=== PATIENT | male | born 1985 | race Caucasian/White ===

== ENCOUNTER → 2017-06-24 07:18 | Outpatient (CLI) | payer BC, SELFPAY ==
[2017-06-24 10:23] LABS: Cholesterol 169 mg/dL (200); Glucose 89 mg/dL (70-110); High Density Lipoprotein 35 mg/dL; Triglycerides 122 mg/dL; Very Low Density Lipoprotein 24 mg/dL (5-40)
== END ==
PROVIDERS: Family Provider Family Medicine; PCP Family Medicine; Visit Provider Family Medicine
DX: Z13.220 Encounter for screening for lipoid disorders (principal); Z13.1 Encounter for screening for diabetes mellitus
CPT/HCPCS: 36415; 80061; 82947

== ENCOUNTER 2017-08-08 17:30 | Outpatient (RCR) | payer BC, SELFPAY ==
--- NOTE | 2017-04-28 15:19 | HP.PTEVAL_ITS ---
Patient's Visit Information ADDIE CALDERÓN is a 32 year old M referred to Physical Therapy by Mich Shetty MD with a diagnosis of BANKHART REPAIR LEFT SHOULDER. Date of Evaluation: 04/28/17 Physical Therapist: Jaxon Welch PT, - Visit Plan Frequency: 3x /Week Duration: 8WEEKS Plan: BANKHART GUIDELINES. SEE PROTOCAL. PHASE 1 X6 WEEKS *NO ER AND ABDUCTION*. PHASE 2 [id number]. PHASE 3 [id number]. OKAY TO REMOVE SLING AT HOME - Subjective Subjective: This 32 male presents to physical therapy with Bankart repair left shoulder on Apr 15 done [facility]. Patient had nerve block d/c same day with sling.Sling on PRN for comfort okay to remove at home. Ice at home. Patient limited with all ADL'S and function activites left UE.Denies parathesia/ tingling. Sleeping okay. Seen Tuesday removed stitches. 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 SOCIAL: . HOBBIES : 4 wheeling. RTD 6weeks.Patient RTW office work. - Pain Left Shoulder Pain Intensity (Out of 10): 2 - Objective POSTURE: rounded shoulders sling inact. INSCION: well approximate. SLING INTACT. NEURO: incat ,denies parathesia/tingling. MMT: NT shoulder, elbow/ wrist 4/5. PROM : shoulder flexion 85 degrees supine ,NT abduction/ER. PALAPTION: unremarkable. EDEMA: mild shoulder - Goals Goal 1:: Independant with HEP progression with Banhart PROTOCAL Goal Time Frame: 4-6 Weeks Goal 2:: No pain with left shoulder 90% Goal Time Frame: 12-16 Weeks Goal 3:: Patient improve AROM shoulder flexion/abd 150 degrees and ER 80 degrees to improve function. Goal Time Frame: 8-12 Weeks Goal 4:: Patient increase strength left shoulder RTC 4/5 AND DELTOID 4-/5 to improve function with ADL'S Goal Time Frame: 12-16 Weeks Goal 5:: Patient to improve ablity to use arm for ADL'S ,self hygine and job demands with min limiations Goal Time Frame: 12-16 Weeks - Rehabilitation Potential Physical Therapy Diagnosis: This patient underwent s/p left shoulder bankhart repair 04/15/17 . Patient has loss ROM,strength left shoulder impairs function amd self hygine with restrisction. PHASE 1 X6 WEEKS ,THEN PHASE 2 6WEEKS AND PHASE 3 6WEEKS WITH. *NO ABDUCTION AND ER.*-FOR 6WEEKS Rehabilitation Potential: Good - Anticipated Interventions Patient/Client Instruction: Educate patient on: Condition, Plan of Care For the Purpose of:: To decrease pain, To increase ROM, To improve muscle performance and motor function, To improve ability to perform ADL's, To increase tolerance to activity/condition/position, To improve performance and independence with ADL's, To improve ability of physical actions for home/ community/work/leisure, To improve health of tissue, To decrease soft tissue restriction, To increase flexibility/ROM, To prevent re-injury Therapeutic Exercise to Include: Strength training, Passive ROM, Active ROM, Scapular Strength/Stabilization Comment: KULWANT GUIDELINES --SEE PROTOCAL. PHASE 1 X6 WEEKS NO ABD/ER FOR 6WEEKS. PHASE 2 X6 WEEKS. PHASE 3 X6 WEEKS For the Purpose of:: To decrease pain, To increase ROM, To improve muscle performance and motor function, To improve ability to perform ADL's, To increase tolerance to activity/condition/position, To improve performance and independence with ADL's, To improve ability of physical actions for home/ community/work/leisure, To improve health of tissue, To decrease soft tissue restriction, To increase flexibility/ROM IF ES: Yes Cryotherapy (ice pack, ice massage): Yes Thermo therapy (hot pack): Yes For the Purpose of:: To decrease pain, To decrease swelling/inflammation, To improve nutrient delivery to tissue, To increase oxygenation perfusion, To improve health of tissue, To decrease soft tissue restriction Thank you for the opportunity to evaluate your patient. For Medicare and Medicare HMO plans, please review the plan of care and approve it. It will need to be FAXED BACK to us at [phone] for Medicare purposes. Please let me know if there are questions or concerns regarding this plan of care. Physician Signature: Date:
--- NOTE | 2017-05-27 11:47 | HP.PTREVAL_ITS ---
Mich Shetty MD, It has been my pleasure to treat ADDIE CALDERÓN over the last 7 visits for BANKHART REPAIR LEFT SHOULDER. Please see the progress note below for an update on the physical therapy plan of care! Subjective: s/p 6weeks 05/27. sores shoulder ,but patient limitations with ER AND ABD. PAIN TODAY 07/09 Objective/Function: AAROM 130 DEGREES FLEXION. RTC 3+/5,,ELBOW /WRIST 4-/5, NT DELTOID. ER /ABD NT ARROM PROGRRESS ON 05/27/17. AROM NT Plan Plan: REQUESTING 18 VISITS DUE TO REQUIRING SKILLED PT WITH PROGRESSION OF PROTOCAL OF S/P BANHART REPAIR , ROM WITH FLEXION ONLY PER RESTRICTIONS , STRENGTH IMPAIRS FUNCTION. . BANKHART GUIDELINES. SEE PROTOCAL. S/P APR 15, 2017 6WEEKS MAY 27. PHASE 1 X6 WEEKS *NO ER AND ABDUCTION* START. PHASE 2 [id number]. PHASE 3 [id number]. OKAY TO REMOVE SLING AT HOME Goals Goal 1:: Independant with HEP progression with Banhart PROTOCAL Goal Time Frame: 4-6 Weeks Goal 2:: No pain with left shoulder 90% Goal Time Frame: 12-16 Weeks Goal 3:: Patient improve AROM shoulder flexion/abd 150 degrees and ER 80 degrees to improve function. Goal Time Frame: 8-12 Weeks Goal 4:: Patient increase strength left shoulder RTC 4/5 AND DELTOID 4-/5 to improve function with ADL'S Goal Time Frame: 12-16 Weeks Goal 5:: Patient to improve ablity to use arm for ADL'S ,self hygine and job demands with min limiations Goal Time Frame: 12-16 Weeks Anticipated Interventions Patient/Client Instruction: Educate patient on: Condition, Plan of Care For the Purpose of:: To decrease pain, To increase ROM, To improve muscle performance and motor function, To improve ability to perform ADL's, To increase tolerance to activity/condition/position, To improve performance and independence with ADL's, To improve ability of physical actions for home/ community/work/leisure, To improve health of tissue, To decrease soft tissue restriction, To increase flexibility/ROM, To prevent re-injury Therapeutic Exercise to Include: Strength training, Passive ROM, Active ROM, Scapular Strength/Stabilization Comment: BANKHART GUIDELINES --SEE PROTOCAL. PHASE 1 X6 WEEKS NO ABD/ER FOR 6WEEKS. PHASE 2 X6 WEEKS. PHASE 3 X6 WEEKS For the Purpose of:: To decrease pain, To increase ROM, To improve muscle performance and motor function, To improve ability to perform ADL's, To increase tolerance to activity/condition/position, To improve performance and independence with ADL's, To improve ability of physical actions for home/ community/work/leisure, To improve health of tissue, To decrease soft tissue restriction, To increase flexibility/ROM IF ES: Yes Cryotherapy (ice pack, ice massage): Yes Thermo therapy (hot pack): Yes For the Purpose of:: To decrease pain, To decrease swelling/inflammation, To improve nutrient delivery to tissue, To increase oxygenation perfusion, To improve health of tissue, To decrease soft tissue restriction Please do not hesitate to contact me at [phone] by phone or Fax: if you have questions or concerns regarding this new plan of care! Sincerely, Jaxon Welch PT,
--- NOTE | 2017-06-28 08:13 | HP.PTREVAL ---
Mich Shetty MD, It has been my pleasure to treat ADDIE CALDERÓN over the last 13 visits for BANKHART REPAIR LEFT SHOULDER. Please see the progress note below for an update on the physical therapy plan of care! Subjective: Patient reports feeling better Objective/Function: POSTURE: mild foward posture. PROM: shoulder flexion 150 degrees,abd [address],ER 5IDE 50 DEGREES. AROM: shoulder 140 degrees. MMT: ER 4-/5/IR 4/5,anterior 3+/5 ;lateral NT Plan Plan: reguesting 12 more sessions due to patient conts to be on phase 2 AAROM with ex's PROTCAL with progress to phase 3 in 12 weeks to improve strength RTC /SCAP ,ROM for function AND ADLS'. progress per protocal phase 2. S/P 11WEEKS 07/01/17 Goals Goal 1:: Independant with HEP progression with Banhart PROTOCAL Goal Time Frame: 4-6 Weeks Goal 2:: No pain with left shoulder 90% Goal Time Frame: 12-16 Weeks Goal 3:: Patient improve AROM shoulder flexion/abd 150 degrees and ER 80 degrees to improve function. Goal Time Frame: 8-12 Weeks Goal 4:: Patient increase strength left shoulder RTC 4/5 AND DELTOID 4-/5 to improve function with ADL'S Goal Time Frame: 12-16 Weeks Goal 5:: Patient to improve ablity to use arm for ADL'S ,self hygine and job demands with min limiations Goal Time Frame: 12-16 Weeks Anticipated Interventions Patient/Client Instruction: Educate patient on: Condition, Plan of Care For the Purpose of:: To decrease pain, To increase ROM, To improve muscle performance and motor function, To improve ability to perform ADL's, To increase tolerance to activity/condition/position, To improve performance and independence with ADL's, To improve ability of physical actions for home/community/work/leisure, To improve health of tissue, To decrease soft tissue restriction, To increase flexibility/ROM, To prevent re-injury Therapeutic Exercise to Include: Strength training, Passive ROM, Active ROM, Scapular Strength/Stabilization Comment: BANKHART GUIDELINES --SEE PROTOCAL. PHASE 1 X6 WEEKS NO ABD/ER FOR 6WEEKS. PHASE 2 X6 WEEKS. PHASE 3 X6 WEEKS For the Purpose of:: To decrease pain, To increase ROM, To improve muscle performance and motor function, To improve ability to perform ADL's, To increase tolerance to activity/condition/position, To improve performance and independence with ADL's, To improve ability of physical actions for home/community/work/leisure, To improve health of tissue, To decrease soft tissue restriction, To increase flexibility/ROM IF ES: Yes Cryotherapy (ice pack, ice massage): Yes Thermo therapy (hot pack): Yes For the Purpose of:: To decrease pain, To decrease swelling/inflammation, To improve nutrient delivery to tissue, To increase oxygenation perfusion, To improve health of tissue, To decrease soft tissue restriction Please do not hesitate to contact me at [phone] by phone or if you have questions or concerns regarding this new plan of care! Sincerely, Jaxon Welch, PT,
--- NOTE | 2017-08-22 18:04 | HP.PTDCSUM ---
HP - PT D/C Summary It has been my pleasure to treat ADDIE CALDERÓN under orders from Mich Shetty MD, for the diagnosis of BANKHART REPAIR LEFT SHOULDER for a total of 18 visit(s). Discharge Date: 08/22/17 Please see the following information for a summary of their discharge status. - Subjective Subjective: Doing well good. Able to do all ADL'S job and housework tasks - Pain Left Shoulder Pain Intensity (Out of 10): 0 - Overall Improvement % Improvement: 80 - Objective Objective/Function: AROM : shoulder flexion 150 degrees,abd 150 ,ER 60 degrres. MMT: 5/5 RTC ,4/5 DELTOID - Goals Goal 1:: Independant with HEP progression with Banhart PROTOCAL Goal Progress: Goal Met Goal 2:: No pain with left shoulder 90% Goal Progress: Goal Met Goal 3:: Patient improve AROM shoulder flexion/abd 150 degrees and ER 80 degrees to improve function. Goal Progress: Goal Met Goal 4:: Patient increase strength left shoulder RTC 4/5 AND DELTOID 4-/5 to improve function with ADL'S Goal Progress: Goal Met Goal 5:: Patient to improve ablity to use arm for ADL'S ,self hygine and job demands with min limiations Goal Progress: Goal Met - Plan Plan: D/C TO HEP - D/C Information Discharge Comments: HEP MET GOALS If there are questions or concerns regarding this patient's physical therapy, please feel free to call me at [phone]. Thank you for the referral of this patient. Sincerely, Jaxon Welch, PT,
== END 2017-08-08 19:00 | disposition home or self-care (01) ==
LOC: PT 17:30
PROVIDERS: Family Provider Family Medicine; PCP Family Medicine; Visit Provider Orthopaedic Surgery
DX: Z98.890 Other specified postprocedural states (principal)
CPT/HCPCS: 97110; 97161

== ENCOUNTER → 2022-07-02 | Outpatient (CLI) | payer OTHER, SELFPAY ==
[2022-07-02 10:15] LABS: Absolute Lymphocyte Count 1.15 X10^3/uL (0.83-4.51); Absolute Neutrophil Count 3.4 X10^3/uL (2.0-7.7); Basophil# 0.02 X10^3/uL; Basophil% 0.4 % (0-1); Eosinophil# 0.14 X10^3/uL; Eosinophils% 2.8 % (0-5); Hematocrit 44.3 % (40-54); Hemoglobin 14.8 g/dL (13.0-16.5); Lymphocyte # 1.15 X10^3/ul (0.83-4.51); Lymphocyte % 22.7 % (19-41); Mean Corp Hgb Conc 33.4 g/dL (32-36); Mean Corpuscular Hgb 28.6 pg (27.0-32.0); Mean Corpuscular Volume 85.7 fL (80-94); Mean Platelet Vol. 8.9 fl (6.2-12.0); Monocyte# 0.39 X10^3/uL; Monocyte% 7.7 % (0-10); NRBC Flagged by Analyzer 0 % (0-5); Neutrophil # 3.35 X10^3/uL (2.7-7.7); Platelet Count 203 K/mm3 (150-450); RBC Distribution Width CV 12.7 % (11.6-14.6); RBC Distribution Width SD 39.2 fl (35.1-43.9); Red Blood Count 5.17 M/mm3 (4.6-6.2); White Blood Count 5.1 K/mm3 (4.4-11.0)
[2022-07-02 10:44] LABS: ALB/GLOB Ratio 1.3 RATIO (0.9-2.4); AST(SGOT) 22 U/L (15-37); Alanine Aminotransfer ALT/SGPT 34 U/L (16-61); Albumin, Serum 4.3 g/dL (3.2-5.0); Alkaline Phosphatase 64 U/L (45-117); Anion Gap 9 (5-15); BUN 20 mg/dL (7-18); BUN/Creat Ratio 18.3 RATIO (10-20); Calcium,Total 9.4 mg/dL (8.5-10.1); Chloride 106 mmol/L (98-107); Cholesterol 190 mg/dL (200); Creatinine, Serum 1.09 mg/dL (0.70-1.30); EST Glomerular Filtration Rate 80 mL/min (>60); Est Glom Filt Rate - Afr Amer 97 mL/min (>60); Globulin 3.4 g/dL (2.2-4.2); Glucose 95 mg/dL (74-106); High Density Lipoprotein 34 mg/dL; Potassium 4.4 mmol/L (3.5-5.1); Protein, Total 7.7 g/dL (6.4-8.2); Sodium Level 140 mmol/L (136-145); Triglycerides 152 mg/dL; Very Low Density Lipoprotein 30 mg/dL (5-40)
== END | disposition home or self-care (01) ==
PROVIDERS: PCP Internal Medicine; Referring Provider Internal Medicine; Visit Provider Internal Medicine
DX: J30.2 Other seasonal allergic rhinitis (principal); Z13.6 Encounter for screening for cardiovascular disorders
CPT/HCPCS: 36415; 80053; 80061; 85025

== ENCOUNTER → 2023-09-09 | Outpatient (CLI) | payer OTHER, SELFPAY ==
--- NOTE | 2023-09-09 15:30 | RAD_ITS ---
INDICATION: COUGH, SOB EXAMINATION/TECHNIQUE: X-RAY - XR Chest 2 Views COMPARISON: FINDINGS: LINES/DEVICES: None. LUNGS: No consolidation, edema or effusion. No pneumothorax. MEDIASTINUM AND CARDIOVASCULAR STRUCTURES: Cardiac silhouette not enlarged. Central airways and mediastinal contour are unremarkable. BONES AND SOFT TISSUES: Unremarkable. RAD/Chest PA and Lateral IMPRESSION: No radiographic evidence of acute cardiopulmonary disease. Electronically Signed: Mauri Redd DO at 19:44 EDT Reading Location ID and State: [facility] / [place] Tel [phone], Service support ,
== END | disposition home or self-care (01) ==
LOC: MTRAD 15:13
PROVIDERS: PCP Internal Medicine; Referring Provider Internal Medicine Pulmonary Disease; Visit Provider Internal Medicine Pulmonary Disease
DX: R05.9 Cough, unspecified (principal); R06.02 Shortness of breath
CPT/HCPCS: 71046